=== PATIENT | female | born 1960 | race Caucasian/White ===

== ENCOUNTER 2017-08-28 20:23 | Inpatient (IN) | payer MEDICARE, OTHER ==
[~2017-08-28] VITALS: Ht 162.6 cm; Wt 14.0 kg
[~2017-08-28 20:23] MED LIST: CARV3.122 PO; CITA20TA11 PO; COU5T PO; COU7.5T PO; DULO-31 PO; FURO-149 PO; GABA800T2 PO; LANTUS SQ; LEVO100T9 PO; LOSA50TA3 PO; SITA100T15 PO; SPIR25TA3 PO
[2017-08-28 20:57] LABS: BASOPHILS % (AUTO) 0.4 % (0-1); EOSINOPHILS # (AUTO) 0.3 X10'3 (0-0.9); EOSINOPHILS % (AUTO) 2.8 % (0-6); HEMATOCRIT 37.3 % (35.0-45.0); HEMOGLOBIN 12.6 g/dl (12.0-16.0); LYMPHOCYTES # (AUTO) 2.4 X10'3 (1.1-4.8); LYMPHOCYTES % (AUTO) 21.1 % (21-51); MEAN CORPUSCULAR HGB CONC 33.9 % (33.0-36.5); MEAN CORPUSCULAR VOLUME 85.5 FL (78-98); MONOCYTES # (AUTO) 0.6 X10'3 (0-0.9); MONOCYTES % (AUTO) 5.3 % (2-12); NEUTROPHILS # (AUTO) 8.1 X10'3 (1.8-7.7); NEUTROPHILS % (AUTO) 70.4 % (42-75); PLATELET COUNT 255 X10'3 (140-440); RED BLOOD COUNT 4.36 X10'6 (4.20-5.60); RED CELL DISTRIBUTION WIDTH 13.2 % (11.5-14.5); WHITE BLOOD COUNT 11.5 X10'3 (4.5-11.0)
[2017-08-28 21:12] LABS: INR 1.9 INR; PARTIAL THROMBOPLASTIN TIME 37 SECONDS (22-32); PROTHROMBIN TIME 19.6 SECONDS (9.0-12.0)
[2017-08-28 21:27] LABS: ALANINE AMINOTRANSFERASE 18 U/L (12-78); ALBUMIN 3.4 G/DL (3.4-5.0); ALBUMIN/GLOBULIN RATIO 0.9 (1.1-1.5); ALKALINE PHOSPHATASE 92 IU/L (46-116); ANION GAP 4 (8-16); ASPARTATE AMINO TRANSFERASE 9 U/L (10-37); BILIRUBIN,TOTAL 0.3 MG/DL (0.1-1.0); BLOOD UREA NITROGEN 11 MG/DL (7-18); BUN/CREATININE RATIO 10.3 (6.6-38.0); CHLORIDE 99 MMOL/L (99-107); CREATININE 1.07 MG/DL (0.40-0.90); GLUCOSE 437 MG/DL (70-104); POTASSIUM 4.1 MMOL/L (3.5-5.1); SODIUM 136 MMOL/L (135-145); TOTAL CARBON DIOXIDE 33.2 MMOL/L (24-32); TOTAL PROTEIN 7.2 G/DL (6.4-8.2); eGFR 53 ML/MIN
[2017-08-28] MEDS ORDERED: aspirin 81mg tab.chew PO ONE (21:40)
[2017-08-28] MEDS ORDERED: nitroGLYCERIN 0.4mg SUBLingual tab SL PRN (21:40)
[2017-08-28] MEDS ORDERED: enoxaparin 100mg/ml syringe SUBCUT ONE (21:55)
[2017-08-28 22:00] LABS: MAGNESIUM 1.8 MG/DL (1.5-2.4)
[2017-08-28] MEDS ORDERED: INSU300I SUBCUT (22:26)
[2017-08-28] MEDS ORDERED: CARV25TA3 PO (22:26)
[2017-08-28] MEDS ORDERED: SACU1TAB PO (22:26)
[2017-08-28] MEDS ORDERED: morphine 4 MG/ML inj SYRINge IV ONE (22:35)
[2017-08-28] MEDS ORDERED: ondansetron/PF 4mg/2ml inj IV PRN (22:50)
[2017-08-28] MEDS ORDERED: magnesium hydroxide 30ml (MOM) UD suspension PO PRN (22:50)
[2017-08-28] MEDS ORDERED: mag hydrox/Alum hydrox/simeth 30ml oral suspension PO PRN (22:50)
[2017-08-28] MEDS ORDERED: acetaminophen 325mg tablet PO PRN (22:50)
[2017-08-28] MEDS ORDERED: warfarin 5mg tablet PO ONE (23:00)
[2017-08-29 02:49] LABS: BASOPHILS # (AUTO) 0.1 X10'3 (0-0.2); BASOPHILS % (AUTO) 0.9 % (0-1); EOSINOPHILS # (AUTO) 0.4 X10'3 (0-0.9); EOSINOPHILS % (AUTO) 3.6 % (0-6); HEMATOCRIT 35.9 % (35.0-45.0); HEMOGLOBIN 12.3 g/dl (12.0-16.0); LYMPHOCYTES % (AUTO) 24.9 % (21-51); MEAN CORPUSCULAR HEMOGLOBIN 29.1 PG (27.0-31.0); MEAN CORPUSCULAR HGB CONC 34.2 % (33.0-36.5); MEAN CORPUSCULAR VOLUME 85.3 FL (78-98); MEAN PLATELET VOLUME 9.1 FL (7.4-10.4); MONOCYTES # (AUTO) 0.7 X10'3 (0-0.9); NEUTROPHILS # (AUTO) 7.8 X10'3 (1.8-7.7); NEUTROPHILS % (AUTO) 64.6 % (42-75); PLATELET COUNT 226 X10'3 (140-440); RED BLOOD COUNT 4.21 X10'6 (4.20-5.60); RED CELL DISTRIBUTION WIDTH 13.2 % (11.5-14.5); WHITE BLOOD COUNT 12.1 X10'3 (4.5-11.0)
[2017-08-29] MEDS: morphine 4 MG/ML inj SYRINge IV PRN ×2 (02:54→07:10)
[2017-08-29 03:08] LABS: ALANINE AMINOTRANSFERASE 19 U/L (12-78); ALBUMIN 3.3 G/DL (3.4-5.0); ALBUMIN/GLOBULIN RATIO 0.9 (1.1-1.5); ALKALINE PHOSPHATASE 84 IU/L (46-116); ANION GAP 6 (8-16); ASPARTATE AMINO TRANSFERASE 12 U/L (10-37); BILIRUBIN,TOTAL 0.4 MG/DL (0.1-1.0); BLOOD UREA NITROGEN 11 MG/DL (7-18); BUN/CREATININE RATIO 11.5 (6.6-38.0); CHLORIDE 100 MMOL/L (99-107); CREATININE 0.96 MG/DL (0.40-0.90); GLUCOSE 336 MG/DL (70-104); POTASSIUM 3.8 MMOL/L (3.5-5.1); SODIUM 137 MMOL/L (135-145); TOTAL CARBON DIOXIDE 31.3 MMOL/L (24-32); TOTAL PROTEIN 6.9 G/DL (6.4-8.2); eGFR 60 ML/MIN
[2017-08-29 04:38] LABS: PLATELET ESTIMATE NORMAL; TOTAL CELLS COUNTED 100
[2017-08-29] MEDS ORDERED: COU7.5T PO (06:52)
[2017-08-29] MEDS ORDERED: levoTHYROXINE 100mcg tablet PO SCH (07:00)
[2017-08-29] MEDS ORDERED: dextrose 50%-water 50ml dispensing syringe IV PRN ×2 (07:20)
[2017-08-29] MEDS ORDERED: glucagon, human recombinant 1mg kit SUBCUT PRN (07:20)
[2017-08-29] MEDS ORDERED: MESSAGE TO PHARMACY PO ONE (07:20)
[2017-08-29] MEDS ORDERED: dextrose ORAL solution 15 GM/59 ML bottle PO PRN ×2 (07:20)
[2017-08-29] MEDS ORDERED: insulin Lispro (HumaLOG) vial - multi-dose SQ SCH (07:20)
[2017-08-29] MEDS ORDERED: furosemide 40mg tablet PO SCH (08:00)
[2017-08-29] MEDS ORDERED: CARVEDILOL PO SCH (08:00)
[2017-08-29] MEDS ORDERED: duloxetine 30mg CAPSULE.DR PO SCH (08:00)
[2017-08-29] MEDS ORDERED: carVEDilol 12.5mg tablet PO SCH (08:00)
[2017-08-29] MEDS ORDERED: INSULIN GLARGINE HUM REC ANLOG 50 UNIT SUBCUT SCH (08:00)
[2017-08-29] MEDS ORDERED: sacubitril/valsartan 24mg-26mg tablet PO SCH (08:00)
[2017-08-29] MEDS ORDERED: spironolactone 25 MG tablet PO SCH (08:00)
[2017-08-29 08:36] LABS: HEMOGLOBIN A1C 11.7 % (4.5-6.2)
[2017-08-29 10:40] VITALS: BP 119/79
[2017-08-29] MEDS ORDERED: insulin glargine (Lantus) pen - multi-dose SQ SCH ×2 (21:00)
== END 2017-08-29 11:30 | disposition home or self-care (01) | DRG 313 ==
LOC: ER 20:24 → ED HOLD 22:46 → UNDOADMIN 22:46 → PACU 22:46 → ED HOLD 08-29 03:11
PROVIDERS: ADMIT Internal Medicine; ATTEND Family Medicine
DX: R07.89 Other chest pain (principal); I25.10 Atherosclerotic heart disease of native coronary artery without angina pectoris; I11.0 Hypertensive heart disease with heart failure; I42.0 Dilated cardiomyopathy; I50.9 Heart failure, unspecified; E11.9 Type 2 diabetes mellitus without complications; J44.9 Chronic obstructive pulmonary disease, unspecified; G47.33 Obstructive sleep apnea (adult) (pediatric); M25.519 Pain in unspecified shoulder; R53.81 Other malaise; J45.909 Unspecified asthma, uncomplicated; E03.9 Hypothyroidism, unspecified; Z79.01 Long term (current) use of anticoagulants; Z87.891 Personal history of nicotine dependence; Z95.810 Presence of automatic (implantable) cardiac defibrillator; Z79.4 Long term (current) use of insulin; Z79.899 Other long term (current) drug therapy
CPT/HCPCS: 36415; 71045; 80053; 82948; 83036; 83735; 83880; 84484; 85025; 85610; 85730; 87070; 93005; 96372; 96374; 99285; J1650; J1815; J2270

== ENCOUNTER 2017-11-21 15:20 | Emergency (ER) | payer MEDICARE, OTHER ==
[~2017-11-21] VITALS: Ht 162.6 cm; Wt 106.5 kg
[~2017-11-21 15:20] MED LIST changes: +CARV25TA3 PO; -CARV3.122 PO; -CITA20TA11 PO; -COU5T PO; -GABA800T2 PO; +INSU300I SUBCUT; -LANTUS SQ; -LOSA50TA3 PO; +SACU1TAB PO; -SPIR25TA3 PO; +SPIR25TA5 PO
[2017-11-21] MEDS ORDERED: TRIA15OI2 TOP (16:16)
[2017-11-21] MEDS ORDERED: CEPH-572 PO (16:16)
[2017-11-21 16:30] VITALS: BP 138/91
== END 2017-11-21 16:31 | disposition home or self-care (01) ==
LOC: ER 15:21
DX: L40.9 Psoriasis, unspecified (principal); R23.4 Changes in skin texture; R51 Headache; H53.8 Other visual disturbances; I25.10 Atherosclerotic heart disease of native coronary artery without angina pectoris; I11.0 Hypertensive heart disease with heart failure; I50.9 Heart failure, unspecified; J44.9 Chronic obstructive pulmonary disease, unspecified; E11.9 Type 2 diabetes mellitus without complications; Z90.710 Acquired absence of both cervix and uterus; Z95.0 Presence of cardiac pacemaker; Z79.4 Long term (current) use of insulin; Z79.01 Long term (current) use of anticoagulants; Z79.899 Other long term (current) drug therapy
CPT/HCPCS: 99283

== ENCOUNTER 2018-08-11 18:49 | Emergency (ER) | payer MEDICARE, OTHER ==
[~2018-08-11] VITALS: Ht 162.6 cm; Wt 107.0 kg
[~2018-08-11 18:49] MED LIST changes: +TRIA15OI2 TOP
[2018-08-11 19:27] VITALS: BP 116/79
[2018-08-11] MEDS ORDERED: predniSONE 20 mg tablet PO ONE (20:00)
[2018-08-11] MEDS ORDERED: ipratropium/albuterol 3ml nebule NEB ONE (20:00)
[2018-08-11 20:02] LABS: BASOPHILS # (AUTO) 0.1 X10'3 (0-0.2); BASOPHILS % (AUTO) 1.4 % (0-1); EOSINOPHILS # (AUTO) 0.5 X10'3 (0-0.9); EOSINOPHILS % (AUTO) 6.2 % (0-6); HEMATOCRIT 38.1 % (35.0-45.0); HEMOGLOBIN 12.6 g/dl (12.0-16.0); LYMPHOCYTES # (AUTO) 2.1 X10'3 (1.1-4.8); LYMPHOCYTES % (AUTO) 27.6 % (21-51); MEAN CORPUSCULAR HEMOGLOBIN 29.7 PG (27.0-31.0); MEAN CORPUSCULAR HGB CONC 33.1 g/dL (33.0-36.5); MEAN CORPUSCULAR VOLUME 89.7 FL (78-98); MONOCYTES # (AUTO) 0.5 X10'3 (0-0.9); MONOCYTES % (AUTO) 6.7 % (2-12); NEUTROPHILS # (AUTO) 4.5 X10'3 (1.8-7.7); NEUTROPHILS % (AUTO) 58.1 % (42-75); PLATELET COUNT 283 X10'3 (140-440); RED BLOOD COUNT 4.25 X10'6 (4.20-5.60); RED CELL DISTRIBUTION WIDTH 13.8 % (11.5-14.5); WHITE BLOOD COUNT 7.7 X10'3 (4.5-11.0)
[2018-08-11 20:14] LABS: ALANINE AMINOTRANSFERASE 16 U/L (12-78); ALBUMIN 3.4 G/DL (3.4-5.0); ALBUMIN/GLOBULIN RATIO 0.9 (1.1-1.5); ALKALINE PHOSPHATASE 89 IU/L (46-116); ANION GAP 4 (8-16); ASPARTATE AMINO TRANSFERASE 12 U/L (10-37); BILIRUBIN,TOTAL 0.2 MG/DL (0.1-1.0); BLOOD UREA NITROGEN 14 MG/DL (7-18); BUN/CREATININE RATIO 14.1 (6.6-38.0); CALCIUM 8.7 MG/DL (8.5-10.1); CHLORIDE 100 MMOL/L (99-107); CREATININE 0.99 MG/DL (0.40-0.90); GLUCOSE 364 MG/DL (70-104); POTASSIUM 4.5 MMOL/L (3.5-5.1); SODIUM 137 MMOL/L (135-145); TOTAL CARBON DIOXIDE 32.9 MMOL/L (24-32); TOTAL PROTEIN 7.2 G/DL (6.4-8.2); eGFR 58 ML/MIN
[2018-08-11] MEDS ORDERED: DOXY100C43 PO (21:30)
[2018-08-11] MEDS ORDERED: PRED20TA PO (21:30)
[2018-08-11] MEDS ORDERED: ALBU8.5H8 IH (21:35)
[2018-08-11] MEDS ORDERED: ALB0.5UD IH (21:35)
[2018-08-11 21:44] LABS: PARTIAL THROMBOPLASTIN TIME 45 SECONDS (22-32)
== END 2018-08-11 21:42 | disposition home or self-care (01) ==
LOC: ER 18:50
DX: J40 Bronchitis, not specified as acute or chronic (principal); I25.10 Atherosclerotic heart disease of native coronary artery without angina pectoris; E11.9 Type 2 diabetes mellitus without complications; I11.0 Hypertensive heart disease with heart failure; I50.9 Heart failure, unspecified; J44.9 Chronic obstructive pulmonary disease, unspecified; Z79.4 Long term (current) use of insulin; Z79.899 Other long term (current) drug therapy; Z95.0 Presence of cardiac pacemaker; Z90.710 Acquired absence of both cervix and uterus
CPT/HCPCS: 36415; 71045; 80053; 83880; 84484; 85025; 85610; 85730; 93005; 94640; 94760; 99284; J7512

== ENCOUNTER 2019-02-07 19:23 | Emergency (ER) | payer SELFPAY ==
[~2019-02-07] VITALS: Ht 162.6 cm; Wt 113.6 kg
[~2019-02-07 19:23] MED LIST changes: +ALBU8.5H8 IH
[2019-02-07 19:29] VITALS: BP 138/56
--- NOTE | 2019-02-07 19:46 | NUR ---
Pt fell yesterday (grabbed onto a sign for support but it was not secured and swivled and pt lost her balance). She landed all of her weight on to her left knee on the concrete parking lot at [employer]. She reports a lot of bleeding initially d/t she takes warfarin. The pain continues and that is why she wants to be seen. No prior history of knee injury. Friend at bedside.
== END 2019-02-07 21:06 | disposition home or self-care (01) ==
LOC: ER 19:23
DX: S80.02XA Contusion of left knee, initial encounter (principal); I25.10 Atherosclerotic heart disease of native coronary artery without angina pectoris; I11.0 Hypertensive heart disease with heart failure; I50.9 Heart failure, unspecified; J44.9 Chronic obstructive pulmonary disease, unspecified; E11.9 Type 2 diabetes mellitus without complications; Z90.710 Acquired absence of both cervix and uterus; Z95.0 Presence of cardiac pacemaker; Z79.899 Other long term (current) drug therapy; Z79.4 Long term (current) use of insulin; Z79.01 Long term (current) use of anticoagulants; W18.30XA Fall on same level, unspecified, initial encounter; Y93.89 Activity, other specified; Y92.89 Other specified places as the place of occurrence of the external cause; Y99.9 Unspecified external cause status
CPT/HCPCS: 73564; 99284

== ENCOUNTER 2019-04-25 12:39 | Emergency (ER) | payer MEDICARE ==
[~2019-04-25] VITALS: Ht 162.6 cm; Wt 117.4 kg
[2019-04-25 13:33] LABS: HEMATOCRIT 38.4 % (35.0-45.0); MEAN CORPUSCULAR HEMOGLOBIN 30.2 PG (27.0-31.0); MEAN CORPUSCULAR HGB CONC 33.9 g/dL (33.0-36.5); MEAN CORPUSCULAR VOLUME 89.2 FL (78-98); MEAN PLATELET VOLUME 8.7 FL (7.4-10.4); PLATELET COUNT 302 X10'3 (140-440); RED BLOOD COUNT 4.31 X10'6 (4.20-5.60); RED CELL DISTRIBUTION WIDTH 13.4 % (11.5-14.5); WHITE BLOOD COUNT 10.5 X10'3 (4.5-11.0)
[2019-04-25 13:55] LABS: PARTIAL THROMBOPLASTIN TIME 45 SECONDS (22-32)
[2019-04-25 14:08] LABS: TOTAL CELLS COUNTED 100
[2019-04-25 14:10] LABS: ALANINE AMINOTRANSFERASE 17 U/L (12-78); ALBUMIN 3.7 G/DL (3.4-5.0); ALBUMIN/GLOBULIN RATIO 0.8 (1.1-1.5); ALKALINE PHOSPHATASE 97 IU/L (46-116); ANION GAP 6 (8-16); ASPARTATE AMINO TRANSFERASE 15 U/L (10-37); BILIRUBIN,TOTAL 0.5 MG/DL (0.1-1.0); BLOOD UREA NITROGEN 14 MG/DL (7-18); BUN/CREATININE RATIO 10.5 (6.6-38.0); CHLORIDE 95 MMOL/L (99-107); CREATININE 1.33 MG/DL (0.40-0.90); GLUCOSE 286 MG/DL (70-104); POTASSIUM 4.7 MMOL/L (3.5-5.1); SODIUM 134 MMOL/L (135-145); TOTAL PROTEIN 8.2 G/DL (6.4-8.2); eGFR 41 ML/MIN
[2019-04-25 14:13] LABS: PLATELET ESTIMATE NORMAL
[2019-04-25 14:14] LABS: STOMATOCYTES 1+
[2019-04-25 14:15] LABS: TOXIC GRANULATION 1+; TOXIC VACUOLATION FEW
[2019-04-25 14:16] LABS: POLYCHROMASIA FEW
[2019-04-25] MEDS ORDERED: ipratropium/albuterol 3ml nebule NEB ONE (15:35)
[2019-04-25] MEDS ORDERED: aspirin 81mg tab.chew PO ONE (15:40)
[2019-04-25 16:08] LABS: D-DIMER 0.22 MG/L FEU (0-0.50)
[2019-04-25] MEDS ORDERED: PRED20TA PO (16:21)
[2019-04-25] MEDS ORDERED: ALBU6.7H9 INH (16:21)
[2019-04-25] MEDS ORDERED: GUAI120015 PO (16:21)
[2019-04-25] MEDS ORDERED: AMOX-419 PO (16:21)
[2019-04-25 16:54] LABS: CLARITY,URINE CLOUDY (Clear); COLOR,URINE YELLOW (Yellow); GLUCOSE, URINE NEGATIVE (Neg); KETONES,URINE TRACE mg/dl (Neg); LEUKOCYTE ESTERASE ,URINE MODERATE (Neg); NITRITES, URINE NEGATIVE (Neg); OCCULT BLOOD,URINE NEGATIVE (Neg); PROTEIN,URINE NEGATIVE (Neg); UROBILINOGEN,URINE 0.2 E.U/dL (0.2-1.0)
[2019-04-25 16:58] LABS: UA COLLECTION TYPE CLN CATCH MIDSTREAM
[2019-04-25 16:59] VITALS: BP 104/68
[2019-04-25 17:01] LABS: WBC,URINE 20-30 /HPF (0-4)
[2019-04-25 17:04] LABS: BACTERIA,URINE 2+ /HPF (Neg); RBC,URINE NONE SEEN /HPF (0-2); SQUAMOUS EPITHELIAL CELL,UR MANY /LPF (FEW)
== END 2019-04-25 17:00 | disposition home or self-care (01) ==
LOC: ER 12:40
DX: J44.1 Chronic obstructive pulmonary disease with (acute) exacerbation (principal); J40 Bronchitis, not specified as acute or chronic; I25.10 Atherosclerotic heart disease of native coronary artery without angina pectoris; I11.0 Hypertensive heart disease with heart failure; I50.9 Heart failure, unspecified; E11.9 Type 2 diabetes mellitus without complications; Z90.710 Acquired absence of both cervix and uterus; Z95.0 Presence of cardiac pacemaker; Z87.891 Personal history of nicotine dependence; Z79.4 Long term (current) use of insulin; Z79.01 Long term (current) use of anticoagulants; Z79.899 Other long term (current) drug therapy
CPT/HCPCS: 36415; 71045; 80053; 81001; 83605; 83880; 84145; 84484; 85025; 85379; 85610; 85730; 87040; 93005; 94640; 94760; 99284

== ENCOUNTER 2019-08-10 05:10 | Emergency (ER) | payer MEDICARE ==
[~2019-08-10] VITALS: Ht 162.6 cm; Wt 124.0 kg
[~2019-08-10 05:10] MED LIST changes: +ALBU6.7H9 INH; +GUAI120015 PO
[2019-08-10] MEDS ORDERED: furosemide 10 MG/1 ML 10ml inj IV ONE (05:20)
[2019-08-10] MEDS ORDERED: ondansetron/PF 4mg/2ml inj IV ONE (05:20)
[2019-08-10] MEDS ORDERED: ipratropium/albuterol 3ml nebule NEB ONE (05:25)
[2019-08-10 05:33] LABS: BASOPHILS # (AUTO) 0.1 X10'3 (0-0.2); BASOPHILS % (AUTO) 0.9 % (0-1); EOSINOPHILS # (AUTO) 0.3 X10'3 (0-0.9); EOSINOPHILS % (AUTO) 4.4 % (0-6); HEMATOCRIT 37.9 % (35.0-45.0); HEMOGLOBIN 12.6 g/dl (12.0-16.0); LYMPHOCYTES # (AUTO) 2.4 X10'3 (1.1-4.8); LYMPHOCYTES % (AUTO) 32.8 % (21-51); MEAN CORPUSCULAR HEMOGLOBIN 29.6 PG (27.0-31.0); MEAN CORPUSCULAR HGB CONC 33.4 g/dL (33.0-36.5); MEAN CORPUSCULAR VOLUME 88.9 FL (78-98); MEAN PLATELET VOLUME 8.9 FL (7.4-10.4); MONOCYTES # (AUTO) 0.8 X10'3 (0-0.9); MONOCYTES % (AUTO) 10.6 % (2-12); NEUTROPHILS # (AUTO) 3.8 X10'3 (1.8-7.7); NEUTROPHILS % (AUTO) 51.3 % (42-75); PLATELET COUNT 229 X10'3 (140-440); RED BLOOD COUNT 4.26 X10'6 (4.20-5.60); RED CELL DISTRIBUTION WIDTH 13.5 % (11.5-14.5); WHITE BLOOD COUNT 7.4 X10'3 (4.5-11.0)
[2019-08-10 05:46] LABS: ALANINE AMINOTRANSFERASE 16 U/L (12-78); ALBUMIN 3.3 G/DL (3.4-5.0); ALBUMIN/GLOBULIN RATIO 0.8 (1.1-1.5); ANION GAP 5 (8-16); ASPARTATE AMINO TRANSFERASE 16 U/L (10-37); BILIRUBIN,TOTAL 0.2 MG/DL (0.1-1.0); BLOOD UREA NITROGEN 17 MG/DL (7-18); BUN/CREATININE RATIO 15.9 (6.6-38.0); CALCIUM 8.7 MG/DL (8.5-10.1); CHLORIDE 102 MMOL/L (99-107); CREATININE 1.07 MG/DL (0.40-0.90); GLUCOSE 193 MG/DL (70-104); POTASSIUM 4.1 MMOL/L (3.5-5.1); SODIUM 138 MMOL/L (135-145); TOTAL CARBON DIOXIDE 31.3 MMOL/L (24-32); TOTAL PROTEIN 7.2 G/DL (6.4-8.2); eGFR 52 ML/MIN
[2019-08-10 05:59] LABS: ALKALINE PHOSPHATASE 80 IU/L (46-116)
[2019-08-10] MEDS ORDERED: aspirin 325mg tablet PO ONE (06:05)
[2019-08-10] MEDS ORDERED: LEVO750T21 PO (06:38)
[2019-08-10] MEDS ORDERED: PRED20TA PO (06:38)
[2019-08-10] MEDS ORDERED: DULO-31 PO (06:38)
[2019-08-10] MEDS ORDERED: levoFLOXACIN 750MG TABLET PO ONE (06:40)
[2019-08-10 07:29] VITALS: BP 123/72
== END 2019-08-10 07:31 | disposition home or self-care (01) ==
LOC: ER 05:10
DX: J44.9 Chronic obstructive pulmonary disease, unspecified (principal); I25.10 Atherosclerotic heart disease of native coronary artery without angina pectoris; I11.0 Hypertensive heart disease with heart failure; I50.9 Heart failure, unspecified; E11.9 Type 2 diabetes mellitus without complications; Z85.41 Personal history of malignant neoplasm of cervix uteri; Z90.710 Acquired absence of both cervix and uterus; Z95.0 Presence of cardiac pacemaker; Z79.01 Long term (current) use of anticoagulants; Z79.899 Other long term (current) drug therapy
CPT/HCPCS: 36415; 71045; 80053; 83880; 84484; 85025; 93005; 94640; 96374; 96375; 99285; J1940; J2405; 94760

== ENCOUNTER 2019-12-10 13:13 | Emergency (ER) | payer MEDICARE ==
[~2019-12-10] VITALS: Ht 162.6 cm; Wt 109.1 kg
[2019-12-10] MEDS ORDERED: ondansetron/PF 4mg/2ml inj IV ONE (13:45)
[2019-12-10] MEDS ORDERED: normal saline 1000ML IV soln IV ONE (13:45)
[2019-12-10] MEDS: morphine 4 MG/ML inj SYRINge IV PRN ×2 (14:22→15:53)
[2019-12-10 14:38] LABS: BASOPHILS # (AUTO) 0.1 X10'3 (0-0.2); BASOPHILS % (AUTO) 0.6 % (0-1); EOSINOPHILS # (AUTO) 0.1 X10'3 (0-0.9); EOSINOPHILS % (AUTO) 0.7 % (0-6); HEMATOCRIT 33.7 % (35.0-45.0); LYMPHOCYTES # (AUTO) 2.1 X10'3 (1.1-4.8); LYMPHOCYTES % (AUTO) 13.4 % (21-51); MEAN CORPUSCULAR HEMOGLOBIN 29.6 PG (27.0-31.0); MEAN CORPUSCULAR HGB CONC 32.8 g/dL (33.0-36.5); MEAN CORPUSCULAR VOLUME 90.2 FL (78-98); MEAN PLATELET VOLUME 8.9 FL (7.4-10.4); MONOCYTES % (AUTO) 6.7 % (2-12); NEUTROPHILS # (AUTO) 12.2 X10'3 (1.8-7.7); NEUTROPHILS % (AUTO) 78.6 % (42-75); PLATELET COUNT 266 X10'3 (140-440); RED BLOOD COUNT 3.74 X10'6 (4.20-5.60); RED CELL DISTRIBUTION WIDTH 14.1 % (11.5-14.5); WHITE BLOOD COUNT 15.6 X10'3 (4.5-11.0)
[2019-12-10 14:51] LABS: ALANINE AMINOTRANSFERASE 14 U/L (12-78); ALBUMIN 2.9 G/DL (3.4-5.0); ALBUMIN/GLOBULIN RATIO 0.8 (1.1-1.5); ALKALINE PHOSPHATASE 87 IU/L (46-116); ANION GAP 6 (8-16); ASPARTATE AMINO TRANSFERASE 18 U/L (10-37); BILIRUBIN,TOTAL 0.5 MG/DL (0.1-1.0); BLOOD UREA NITROGEN 15 MG/DL (7-18); BUN/CREATININE RATIO 12.5 (6.6-38.0); CALCIUM 8.2 MG/DL (8.5-10.1); CHLORIDE 102 MMOL/L (99-107); GLUCOSE 247 MG/DL (70-104); LIPASE < 50 U/L (73-393); SODIUM 139 MMOL/L (135-145); TOTAL CARBON DIOXIDE 30.6 MMOL/L (24-32); TOTAL PROTEIN 6.7 G/DL (6.4-8.2); eGFR 46 ML/MIN
[2019-12-10] MEDS ORDERED: HYDR-4383 PO (15:04)
[2019-12-10] MEDS ORDERED: AMOX-422 PO (15:04)
[2019-12-10] MEDS ORDERED: ONDA4TAB6 PO (15:04)
[2019-12-10] MEDS ORDERED: amox tr/potassium clavulanate 875/125mg TAB PO ONE (15:05)
[2019-12-10 17:10] VITALS: BP 129/54
== END 2019-12-10 17:05 | disposition home or self-care (01) ==
LOC: ER 13:13
DX: K57.32 Diverticulitis of large intestine without perforation or abscess without bleeding (principal); R06.02 Shortness of breath; I25.10 Atherosclerotic heart disease of native coronary artery without angina pectoris; R19.7 Diarrhea, unspecified; I50.9 Heart failure, unspecified; I11.0 Hypertensive heart disease with heart failure; J44.9 Chronic obstructive pulmonary disease, unspecified; E11.9 Type 2 diabetes mellitus without complications; Z90.49 Acquired absence of other specified parts of digestive tract; Z90.710 Acquired absence of both cervix and uterus; Z95.0 Presence of cardiac pacemaker; Z79.4 Long term (current) use of insulin; Z79.899 Other long term (current) drug therapy; Z86.711 Personal history of pulmonary embolism
CPT/HCPCS: 36415; 74176; 80053; 83605; 83690; 84145; 85025; 87040; 93005; 96361; 96374; 96375; 96376; 99285; J2270; J2405; J7030

== ENCOUNTER 2020-02-12 11:25 | Day surgery (SDC) | payer MEDICARE ==
[~2020-02-12 11:25] MED LIST changes: +HYDR-4383 PO; +ONDA4TAB6 PO
[2020-02-12] MEDS ORDERED: LIDOcaine 2% 5ml jelly ONE (12:43)
== END 2020-02-12 14:18 | disposition home or self-care (01) ==
LOC: WOUND CARE 11:25
PROVIDERS: ATTEND Nurse Practitioner
DX: T81.89XD Other complications of procedures, not elsewhere classified, subsequent encounter (principal); L98.492 Non-pressure chronic ulcer of skin of other sites with fat layer exposed; E11.65 Type 2 diabetes mellitus with hyperglycemia; E11.36 Type 2 diabetes mellitus with diabetic cataract; E07.9 Disorder of thyroid, unspecified; I11.0 Hypertensive heart disease with heart failure; I50.9 Heart failure, unspecified; I25.10 Atherosclerotic heart disease of native coronary artery without angina pectoris; J44.9 Chronic obstructive pulmonary disease, unspecified; F41.8 Other specified anxiety disorders; Z90.710 Acquired absence of both cervix and uterus; Z87.891 Personal history of nicotine dependence; Z79.899 Other long term (current) drug therapy; Z79.4 Long term (current) use of insulin; Z86.14 Personal history of Methicillin resistant Staphylococcus aureus infection; Z86.711 Personal history of pulmonary embolism; Z95.0 Presence of cardiac pacemaker
CPT/HCPCS: 36416; 82948; 97597

== ENCOUNTER 2020-02-18 12:40 | Day surgery (SDC) | payer MEDICARE | END 2020-02-18 14:03 | disposition home or self-care (01) | LOC: WOUND CARE 12:40 | PROVIDERS: ATTEND Nurse Practitioner | DX: T81.89XD Other complications of procedures, not elsewhere classified, subsequent encounter (principal); L98.492 Non-pressure chronic ulcer of skin of other sites with fat layer exposed; E11.65 Type 2 diabetes mellitus with hyperglycemia; E11.36 Type 2 diabetes mellitus with diabetic cataract; E07.9 Disorder of thyroid, unspecified; I11.0 Hypertensive heart disease with heart failure; I50.9 Heart failure, unspecified; I25.10 Atherosclerotic heart disease of native coronary artery without angina pectoris; J44.9 Chronic obstructive pulmonary disease, unspecified; F41.8 Other specified anxiety disorders; Z90.710 Acquired absence of both cervix and uterus; Z87.891 Personal history of nicotine dependence; Z79.899 Other long term (current) drug therapy; Z79.4 Long term (current) use of insulin; Z86.711 Personal history of pulmonary embolism; Z86.14 Personal history of Methicillin resistant Staphylococcus aureus infection; Z95.0 Presence of cardiac pacemaker; Y83.8 Other surgical procedures as the cause of abnormal reaction of the patient, or of later complication, without mention of misadventure at the time of the procedure | CPT/HCPCS: 10180; 36416; 82948; 87070; 87075; 87077; 87102; 87186 ==

== ENCOUNTER 2020-02-26 12:45 | Day surgery (SDC) | payer MEDICARE ==
[2020-02-26] MEDS ORDERED: LIDOcaine 2% 5ml jelly ONE (12:57)
== END 2020-02-26 13:24 | disposition home or self-care (01) ==
LOC: WOUND CARE 12:45
PROVIDERS: ATTEND Nurse Practitioner
DX: K94.09 Other complications of colostomy (principal); T81.89XD Other complications of procedures, not elsewhere classified, subsequent encounter; E11.622 Type 2 diabetes mellitus with other skin ulcer; L98.492 Non-pressure chronic ulcer of skin of other sites with fat layer exposed; E11.65 Type 2 diabetes mellitus with hyperglycemia; E11.36 Type 2 diabetes mellitus with diabetic cataract; E07.9 Disorder of thyroid, unspecified; I11.0 Hypertensive heart disease with heart failure; I50.9 Heart failure, unspecified; I25.10 Atherosclerotic heart disease of native coronary artery without angina pectoris; J44.9 Chronic obstructive pulmonary disease, unspecified; F41.8 Other specified anxiety disorders; Z90.710 Acquired absence of both cervix and uterus; Z87.891 Personal history of nicotine dependence; Z79.899 Other long term (current) drug therapy; Z79.4 Long term (current) use of insulin; Z86.711 Personal history of pulmonary embolism; Z86.14 Personal history of Methicillin resistant Staphylococcus aureus infection; Z95.0 Presence of cardiac pacemaker; Y83.8 Other surgical procedures as the cause of abnormal reaction of the patient, or of later complication, without mention of misadventure at the time of the procedure
CPT/HCPCS: 97597

== ENCOUNTER 2020-03-04 13:10 | Outpatient (CLI) | payer MEDICARE | END 2020-03-04 13:43 | disposition home or self-care (01) | LOC: WOUND CARE 13:10 | PROVIDERS: ATTEND Nurse Practitioner | DX: K94.09 Other complications of colostomy (principal); T81.89XD Other complications of procedures, not elsewhere classified, subsequent encounter; E11.622 Type 2 diabetes mellitus with other skin ulcer; L98.498 Non-pressure chronic ulcer of skin of other sites with other specified severity; E11.65 Type 2 diabetes mellitus with hyperglycemia; E11.36 Type 2 diabetes mellitus with diabetic cataract; E07.9 Disorder of thyroid, unspecified; I11.0 Hypertensive heart disease with heart failure; I50.9 Heart failure, unspecified; I25.10 Atherosclerotic heart disease of native coronary artery without angina pectoris; J44.9 Chronic obstructive pulmonary disease, unspecified; F41.9 Anxiety disorder, unspecified; Z90.710 Acquired absence of both cervix and uterus; Z87.891 Personal history of nicotine dependence; Z79.899 Other long term (current) drug therapy; Z79.4 Long term (current) use of insulin; Z86.711 Personal history of pulmonary embolism; Z86.14 Personal history of Methicillin resistant Staphylococcus aureus infection; Z95.0 Presence of cardiac pacemaker; Y83.8 Other surgical procedures as the cause of abnormal reaction of the patient, or of later complication, without mention of misadventure at the time of the procedure | CPT/HCPCS: 82948; G0463 ==

== ENCOUNTER 2020-11-28 16:02 | Emergency (ER) | payer BC, MEDICARE ==
[~2020-11-28] VITALS: Ht 162.6 cm; Wt 110.0 kg
[2020-11-28 16:51] LABS: BASOPHILS # (AUTO) 0.1 X10'3 (0-0.2); BASOPHILS % (AUTO) 0.8 % (0-1); EOSINOPHILS # (AUTO) 0.4 X10'3 (0-0.9); EOSINOPHILS % (AUTO) 3.9 % (0-6); HEMATOCRIT 35.5 % (35.0-45.0); HEMOGLOBIN 11.8 g/dl (12.0-16.0); LYMPHOCYTES # (AUTO) 2.8 X10'3 (1.1-4.8); LYMPHOCYTES % (AUTO) 26.8 % (21-51); MEAN CORPUSCULAR HGB CONC 33.1 g/dL (33.0-36.5); MEAN CORPUSCULAR VOLUME 90.4 FL (78-98); MEAN PLATELET VOLUME 8.8 FL (7.4-10.4); MONOCYTES # (AUTO) 0.8 X10'3 (0-0.9); NEUTROPHILS # (AUTO) 6.3 X10'3 (1.8-7.7); NEUTROPHILS % (AUTO) 60.5 % (42-75); PLATELET COUNT 274 X10'3 (140-440); RED BLOOD COUNT 3.92 X10'6 (4.20-5.60); WHITE BLOOD COUNT 10.4 X10'3 (4.5-11.0)
[2020-11-28 17:03] LABS: ALANINE AMINOTRANSFERASE 19 U/L (12-78); ALBUMIN 3.7 G/DL (3.4-5.0); ALKALINE PHOSPHATASE 83 IU/L (46-116); ANION GAP 5 (8-16); ASPARTATE AMINO TRANSFERASE 11 U/L (10-37); BILIRUBIN,TOTAL 0.3 MG/DL (0.1-1.0); BLOOD UREA NITROGEN 32 MG/DL (7-18); BUN/CREATININE RATIO 18.1 (6.6-38.0); CALCIUM 8.6 MG/DL (8.5-10.1); CHLORIDE 102 MMOL/L (99-107); CREATININE 1.77 MG/DL (0.40-0.90); GLUCOSE 130 MG/DL (70-104); POTASSIUM 4.8 MMOL/L (3.5-5.1); SODIUM 139 MMOL/L (135-145); TOTAL CARBON DIOXIDE 31.6 MMOL/L (24-32); TOTAL PROTEIN 7.5 G/DL (6.4-8.2); eGFR 29 ML/MIN
--- NOTE | 2020-11-28 17:54 | NUR ---
BEDSIDE COMMODE AND BATHWIPES PROVIDED AND HAT FOR CLEAN CATHCH URINE. PATIENT IS DIZZY WITH POSITION CHANGES
[2020-11-28 18:10] LABS: CLARITY,URINE CLEAR (Clear); COLOR,URINE YELLOW (Yellow); GLUCOSE, URINE NEGATIVE (Neg); KETONES,URINE NEGATIVE (Neg); LEUKOCYTE ESTERASE ,URINE SMALL (Neg); NITRITES, URINE NEGATIVE (Neg); OCCULT BLOOD,URINE TRACE-INTACT (Neg); PROTEIN,URINE NEGATIVE (Neg); UROBILINOGEN,URINE 0.2 E.U/dL (0.2-1.0)
[2020-11-28 18:20] LABS: UA COLLECTION TYPE CLN CATCH MIDSTREAM
[2020-11-28 18:22] LABS: BACTERIA,URINE FEW /HPF (Neg); RBC,URINE 0-2 /HPF (0-2); RENAL CELLS, URINE FEW /HPF; SQUAMOUS EPITHELIAL CELL,UR FEW /LPF (FEW); WBC CLUMPS,URINE FEW /HPF (NEGATIVE); WBC,URINE 20-30 /HPF (0-4)
[2020-11-28] MEDS ORDERED: cephalexin 250mg capsule PO ONE (18:35)
[2020-11-28] MEDS ORDERED: ondansetron 4mg rapidly disintigrating tab PO ONE (18:35)
[2020-11-28] MEDS ORDERED: normal saline 1000ml 1,000 ML IV ONE (18:40)
[2020-11-28] MEDS ORDERED: CEPH250T PO (20:17)
[2020-11-28] MEDS ORDERED: ONDA4TAB6 PO (20:22)
[2020-11-28 20:26] VITALS: BP 122/71
== END 2020-11-28 20:36 | disposition home or self-care (01) ==
LOC: ER 16:03
DX: E86.0 Dehydration (principal); I95.1 Orthostatic hypotension
CPT/HCPCS: 36415; 71045; 80053; 81001; 82948; 84484; 85025; 87088; 93005; 96360; 99285; J7030

== ENCOUNTER 2021-11-14 19:24 | Emergency (ER) | payer BC, MEDICARE ==
[~2021-11-14] VITALS: Ht 162.6 cm; Wt 109.1 kg
[~2021-11-14 19:24] MED LIST changes: +ALBU8.5H17 IH; -ALBU8.5H8 IH
--- NOTE | 2021-11-14 21:05 | NUR ---
PT PRESENTS TO ED WITH RIGHT ELBOW PAIN. WARM TO TOUCH , PT STATES THAT SHE DID NOT INJURE HERSELF. STATES THAT IT CAME UP ABOUT A WEEK PRIOR. PT IS CONCERNED OF CLOT. RESP EVEN AND UNLABORED. SKIN W/D/I. NO OPEN AREAS. ELBOW IS REDDENED.
[2021-11-14] MEDS ORDERED: CEPH500C82 PO (22:13)
[2021-11-14] MEDS ORDERED: cephalexin 250mg capsule PO ONE (22:15)
[2021-11-14 22:57] VITALS: BP 125/84
== END 2021-11-14 23:01 | disposition home or self-care (01) ==
LOC: ER 19:25
DX: L03.113 Cellulitis of right upper limb (principal); M25.421 Effusion, right elbow; I48.91 Unspecified atrial fibrillation; I25.10 Atherosclerotic heart disease of native coronary artery without angina pectoris; I11.0 Hypertensive heart disease with heart failure; I50.9 Heart failure, unspecified; J44.9 Chronic obstructive pulmonary disease, unspecified; E11.9 Type 2 diabetes mellitus without complications; Z87.01 Personal history of pneumonia (recurrent); Z85.41 Personal history of malignant neoplasm of cervix uteri; Z90.89 Acquired absence of other organs; Z90.710 Acquired absence of both cervix and uterus; Z95.0 Presence of cardiac pacemaker; Z79.2 Long term (current) use of antibiotics; Z79.4 Long term (current) use of insulin; Z79.899 Other long term (current) drug therapy
CPT/HCPCS: 99283

== ENCOUNTER 2021-11-24 11:29 | Emergency (ER) | payer MEDICARE, OTHER ==
[~2021-11-24] VITALS: Ht 162.6 cm; Wt 120.0 kg
[~2021-11-24 11:29] MED LIST changes: +CEPH500C82 PO
[2021-11-24 12:09] LABS: BASOPHILS # (AUTO) 0.1 X10'3 (0-0.2); BASOPHILS % (AUTO) 0.8 % (0-1); EOSINOPHILS # (AUTO) 0.5 X10'3 (0-0.9); EOSINOPHILS % (AUTO) 5.2 % (0-6); HEMATOCRIT 37.8 % (35.0-45.0); HEMOGLOBIN 12.6 g/dl (12.0-16.0); LYMPHOCYTES # (AUTO) 2.3 X10'3 (1.1-4.8); LYMPHOCYTES % (AUTO) 23.8 % (21-51); MEAN CORPUSCULAR HEMOGLOBIN 29.4 PG (27.0-31.0); MEAN CORPUSCULAR HGB CONC 33.2 g/dL (33.0-36.5); MEAN CORPUSCULAR VOLUME 88.6 FL (78-98); MEAN PLATELET VOLUME 8.3 FL (7.4-10.4); MONOCYTES # (AUTO) 1.1 X10'3 (0-0.9); NEUTROPHILS # (AUTO) 5.7 X10'3 (1.8-7.7); NEUTROPHILS % (AUTO) 59.2 % (42-75); PLATELET COUNT 357 X10'3 (140-440); RED BLOOD COUNT 4.27 X10'6 (4.20-5.60); RED CELL DISTRIBUTION WIDTH 13.2 % (11.5-14.5); WHITE BLOOD COUNT 9.6 X10'3 (4.5-11.0)
[2021-11-24 12:22] LABS: ALANINE AMINOTRANSFERASE 19 U/L (12-78); ALBUMIN 3.7 G/DL (3.4-5.0); ALBUMIN/GLOBULIN RATIO 0.8 (1.1-1.5); ALKALINE PHOSPHATASE 89 IU/L (46-116); ANION GAP 4 (8-16); ASPARTATE AMINO TRANSFERASE 15 U/L (10-37); BILIRUBIN,TOTAL 0.3 MG/DL (0.1-1.0); BLOOD UREA NITROGEN 27 MG/DL (7-18); CALCIUM 9.2 MG/DL (8.5-10.1); CHLORIDE 95 MMOL/L (99-107); CREATININE 2.08 MG/DL (0.40-0.90); GLUCOSE 350 MG/DL (70-104); POTASSIUM 3.9 MMOL/L (3.5-5.1); SODIUM 136 MMOL/L (135-145); TOTAL CARBON DIOXIDE 36.7 MMOL/L (24-32); TOTAL PROTEIN 8.2 G/DL (6.4-8.2); eGFR 24 ML/MIN
[2021-11-24] MEDS ORDERED: albuterol 2.5 MG/3 ML nebule NEB ONE ×3 (14:30→15:00)
[2021-11-24] MEDS ORDERED: predniSONE 20 mg tablet PO ONE (14:30)
[2021-11-24] MEDS ORDERED: ipratropium/albuterol 3ml nebule NEB ONE (14:30)
[2021-11-24] MEDS ORDERED: PRED10TA PO (16:24)
[2021-11-24] MEDS ORDERED: ALB0.5UD IH (16:24)
[2021-11-24 16:54] VITALS: BP 121/60
== END 2021-11-24 16:59 | disposition home or self-care (01) ==
LOC: ER 11:29
DX: J44.1 Chronic obstructive pulmonary disease with (acute) exacerbation (principal); Z20.822 Contact with and (suspected) exposure to COVID-19; R77.8 Other specified abnormalities of plasma proteins; I48.91 Unspecified atrial fibrillation; I25.10 Atherosclerotic heart disease of native coronary artery without angina pectoris; I11.0 Hypertensive heart disease with heart failure; E11.9 Type 2 diabetes mellitus without complications; Z87.410 Personal history of cervical dysplasia; Z87.01 Personal history of pneumonia (recurrent); Z90.49 Acquired absence of other specified parts of digestive tract; Z90.710 Acquired absence of both cervix and uterus; Z95.0 Presence of cardiac pacemaker; Z87.891 Personal history of nicotine dependence; Z79.01 Long term (current) use of anticoagulants; Z79.899 Other long term (current) drug therapy; Z79.2 Long term (current) use of antibiotics; Z91.14 Patient's other noncompliance with medication regimen
CPT/HCPCS: 36415; 71045; 80053; 83880; 84484; 85025; 93005; 94640; 99285; J7512; 94760; 99283; A4615

== ENCOUNTER 2021-12-10 13:05 | Emergency (ER) | payer OTHER ==
[~2021-12-10] VITALS: Ht 162.6 cm; Wt 111.3 kg
[~2021-12-10 13:05] MED LIST changes: -CEPH500C82 PO; +PRED10TA PO
[2021-12-10 13:40] VITALS: BP 123/81
[2021-12-10] MEDS ORDERED: ondansetron/PF 4mg/2ml inj IV ONE (13:45)
[2021-12-10] MEDS ORDERED: normal saline 1000ML IV soln IVB ONE (13:45)
[2021-12-10] MEDS ORDERED: morphine 4 MG/ML inj SYRINge IV PRN (13:50)
[2021-12-10 13:51] LABS: BASOPHILS # (AUTO) 0.1 X10'3 (0-0.2); BASOPHILS % (AUTO) 0.8 % (0-1); EOSINOPHILS # (AUTO) 0.1 X10'3 (0-0.9); EOSINOPHILS % (AUTO) 1.2 % (0-6); HEMATOCRIT 41.3 % (35.0-45.0); HEMOGLOBIN 13.7 g/dl (12.0-16.0); LYMPHOCYTES # (AUTO) 2.7 X10'3 (1.1-4.8); LYMPHOCYTES % (AUTO) 22.7 % (21-51); MEAN CORPUSCULAR HEMOGLOBIN 29.2 PG (27.0-31.0); MEAN CORPUSCULAR HGB CONC 33.1 g/dL (33.0-36.5); MEAN CORPUSCULAR VOLUME 88.2 FL (78-98); MEAN PLATELET VOLUME 8.8 FL (7.4-10.4); MONOCYTES # (AUTO) 0.8 X10'3 (0-0.9); MONOCYTES % (AUTO) 6.9 % (2-12); NEUTROPHILS # (AUTO) 8.3 X10'3 (1.8-7.7); NEUTROPHILS % (AUTO) 68.4 % (42-75); PLATELET COUNT 296 X10'3 (140-440); RED BLOOD COUNT 4.68 X10'6 (4.20-5.60); RED CELL DISTRIBUTION WIDTH 13.7 % (11.5-14.5); WHITE BLOOD COUNT 12.1 X10'3 (4.5-11.0)
[2021-12-10 14:07] LABS: ALANINE AMINOTRANSFERASE 20 U/L (12-78); ALBUMIN 3.4 G/DL (3.4-5.0); ALBUMIN/GLOBULIN RATIO 0.9 (1.1-1.5); ALKALINE PHOSPHATASE 70 IU/L (46-116); ANION GAP 8 (8-16); ASPARTATE AMINO TRANSFERASE 15 U/L (10-37); BILIRUBIN,TOTAL 0.6 MG/DL (0.1-1.0); BLOOD UREA NITROGEN 48 MG/DL (7-18); BUN/CREATININE RATIO 31.8 (6.6-38.0); CALCIUM 9.3 MG/DL (8.5-10.1); CHLORIDE 96 MMOL/L (99-107); CREATININE 1.51 MG/DL (0.40-0.90); GLUCOSE 150 MG/DL (70-104); LIPASE 74 U/L (73-393); POTASSIUM 4.1 MMOL/L (3.5-5.1); SODIUM 141 MMOL/L (135-145); TOTAL CARBON DIOXIDE 36.9 MMOL/L (24-32); TOTAL PROTEIN 7.1 G/DL (6.4-8.2); eGFR 35 ML/MIN
[2021-12-10] MEDS ORDERED: METO-292 PO (15:52)
== END 2021-12-10 16:10 | disposition home or self-care (01) ==
LOC: ER 13:06
DX: K56.7 Ileus, unspecified (principal); I11.0 Hypertensive heart disease with heart failure; J45.909 Unspecified asthma, uncomplicated; E11.9 Type 2 diabetes mellitus without complications; Z79.899 Other long term (current) drug therapy
CPT/HCPCS: 36415; 74176; 80053; 83690; 84145; 85025; 96361; 96374; 99284; J2405; J7030

== ENCOUNTER 2022-08-05 19:57 | Emergency (ER) | payer OTHER ==
[~2022-08-05] VITALS: Ht 162.6 cm; Wt 110.0 kg
[~2022-08-05 19:57] MED LIST changes: +ALBU6.7H14 INH; -ALBU6.7H9 INH; +METO-292 PO
[2022-08-05 20:03] VITALS: BP 151/66
[2022-08-05] MEDS ORDERED: AZIT-31 PO (20:11)
[2022-08-05] MEDS ORDERED: BENZ1LOZ74 PO (20:11)
== END 2022-08-05 20:19 | disposition home or self-care (01) ==
LOC: ER 19:58
DX: J40 Bronchitis, not specified as acute or chronic (principal); I11.9 Hypertensive heart disease without heart failure; J44.9 Chronic obstructive pulmonary disease, unspecified; E11.9 Type 2 diabetes mellitus without complications; Z79.899 Other long term (current) drug therapy; Z79.1 Long term (current) use of non-steroidal anti-inflammatories (NSAID); Z79.2 Long term (current) use of antibiotics
CPT/HCPCS: 99283

== ENCOUNTER 2023-05-13 15:46 | Emergency (ER) | payer BC, OTHER ==
[~2023-05-13] VITALS: Ht 162.6 cm; Wt 94.6 kg
[~2023-05-13 15:46] MED LIST changes: +BENZ1LOZ74 PO
[2023-05-13] MEDS ORDERED: OSEL45CA PO (18:27)
[2023-05-13 18:35] VITALS: BP 113/93; PULSE 89; RESP 16; TEMP 98.6; O2SAT 97
--- NOTE | 2023-05-13 19:15 | NUR ---
I have reviewed and agree with assessment by Bessy WIGGINS.
== END 2023-05-13 18:37 | disposition home or self-care (01) ==
LOC: ER 15:47
DX: B34.9 Viral infection, unspecified (principal); I11.0 Hypertensive heart disease with heart failure; J44.9 Chronic obstructive pulmonary disease, unspecified; E11.9 Type 2 diabetes mellitus without complications; I10 Essential (primary) hypertension; Z79.899 Other long term (current) drug therapy; Z79.1 Long term (current) use of non-steroidal anti-inflammatories (NSAID); Z79.2 Long term (current) use of antibiotics
CPT/HCPCS: 93005; 99283